=== PATIENT | female | born 1960 | race Caucasian/White ===

== ENCOUNTER 2018-07-06 09:04 | Day surgery (SDC) | payer OTHER ==
[~2018-07-06] VITALS: Ht 157.5 cm; Wt 97.1 kg
[~2018-07-06 09:04] MED LIST: ADAL40KI SC; ALBU1AER4 IN; AMIT PO; ARIP1TAB5 PO; ATOR20TA PO; DOXY100C2 PO; DULO60CA PO; FOLI1TAB6 PO; HYDR-531 PO; HYDR200T36 PO; KEP500T PO; LACO100T PO; LEVO50TA7 PO; LISD70CA PO; LISI-646 PO; MECL-87 PO; MEMA1TAB2 PO; MUPI2CRE TOP; OMEP20TA PO; OXCA600T40 OR; PREG200C19 PO; RIZA10TA24 OR; SIMV-8 PO; SULF500T8 PO; TOPI25CA5 PO
[2018-07-06] MEDS ORDERED: IODIXANOL 320MG/ML 100ML BTL IV ONE (09:54)
[2018-07-06] MEDS ORDERED: LIDOCAINE 2%HCL (LOCAL ANESTH.) INJ 20ML MDV ONE (09:54)
[2018-07-06] MEDS ORDERED: fentaNYL CITRATE 100 MCG/2 ML VL ONE (10:00)
[2018-07-06] MEDS ORDERED: VERAPAMIL 2.5MG/ML INJ 2ML VIAL IV ONE (10:00)
[2018-07-06] MEDS ORDERED: SODIUM CHL 0.9% 0 ML ONE (10:00)
[2018-07-06] MEDS ORDERED: MIDAZOLAM HCL 1MG/1ML-2 ML VIAL ONE (10:00)
[2018-07-06] MEDS ORDERED: ANGIOMAX 250 MG VIAL IV ONE (10:00)
[2018-07-06] MEDS ORDERED: HYDROmorphone HCL 2 MG/ML VL ONE (10:28)
[2018-07-06] MEDS ORDERED: HEPARIN SODIUM (PORCINE) 5000 UNITS/ML 1ML VIAL ONE (10:31)
== END 2018-07-06 12:15 | disposition home or self-care (01) ==
LOC: CATH 09:04
PROVIDERS: ATTEND Internal Medicine
DX: R94.39 Abnormal result of other cardiovascular function study (principal); R06.02 Shortness of breath; I10 Essential (primary) hypertension; E78.00 Pure hypercholesterolemia, unspecified; A49.02 Methicillin resistant Staphylococcus aureus infection, unspecified site; R56.9 Unspecified convulsions; E66.9 Obesity, unspecified; M19.90 Unspecified osteoarthritis, unspecified site; E78.5 Hyperlipidemia, unspecified; J45.909 Unspecified asthma, uncomplicated; Z88.8 Allergy status to other drugs, medicaments and biological substances; Z88.6 Allergy status to analgesic agent; Z86.73 Personal history of transient ischemic attack (TIA), and cerebral infarction without residual deficits; Z68.39 Body mass index [BMI] 39.0-39.9, adult; Z82.49 Family history of ischemic heart disease and other diseases of the circulatory system; Z82.3 Family history of stroke
CPT/HCPCS: 93454; 99152; A6257; C1769; C1894; J1170; J1644; J2250; J3010; J7030; Q9967

== ENCOUNTER 2020-12-09 10:05 | Inpatient (IN) | payer OTHER ==
[2020-12-09] VITALS (16 sets, daily range): BP systolic 62–140; BP diastolic 35–100
[~2020-12-09] VITALS: Ht 157.5 cm; Wt 99.2 kg
[~2020-12-09 10:05] MED LIST changes: -AMIT PO; +AMIT10TA8 PO; -ARIP1TAB5 PO; -LISI-646 PO; +LISI20TA28 PO; -MECL-87 PO; +MECL25TA18 PO; -MEMA1TAB2 PO; +MEMA1TAB5 PO; +METH2.5T PO; -RIZA10TA24 OR; +RIZA10TA50 OR; -SULF500T8 PO
[2020-12-09] MEDS ORDERED: ceFAZolin 1GM/50ML 100 ML IV ONE (10:27)
[2020-12-09] MEDS ORDERED: ACETAMINOPHEN IV 100 ML IV ONE (10:27)
[2020-12-09] MEDS ORDERED: ACETAMINOPHEN IV 1000 MG/100ML (10MG/ML) IV ONE (10:30)
[2020-12-09] MEDS ORDERED: PREGABALIN CAPSULE 75 MG CAP PO ONE (10:30)
[2020-12-09] MEDS ORDERED: fentaNYL CITRATE 100 MCG/2 ML VL ONE (10:53)
[2020-12-09] MEDS ORDERED: MORPHINE SULF(PF) 0.5MG/ML 10ML VIAL ONE (10:53)
[2020-12-09] MEDS ORDERED: MIDAZOLAM HCL 1MG/1ML-2 ML VIAL ONE (10:53)
[2020-12-09] MEDS ORDERED: ONDANSETRON HCL 4 MG/2 ML VIAL ONE (10:54)
[2020-12-09] MEDS ORDERED: GLYCOPYRROLATE 0.2 MG/ML 1ML VIAL ONE (10:54)
[2020-12-09] MEDS ORDERED: PROPOFOL 10 MG/ML 20 ML IV ONE (10:54)
[2020-12-09] MEDS ORDERED: LIDOCAINE 2% (LOCAL ANESTH.) PF 5ml SDV ONE (10:54)
[2020-12-09] MEDS ORDERED: ePHEDrine SULFATE 50 MG/ML AMP ONE ×2 (10:54→14:47)
[2020-12-09] MEDS ORDERED: TRANEXAMIC ACID 20 ML ONE (11:36)
[2020-12-09] MEDS ORDERED: BUPIVACAINE 0.25% INJ 50ML VIAL ONE (11:36)
[2020-12-09] MEDS ORDERED: VANCOMYCIN HCL 1000 MG VL ONE (11:37)
[2020-12-09] MEDS ORDERED: ACETAMINOPHEN 325 MG TAB PO PRN ×2 (14:30→18:00)
[2020-12-09] MEDS ORDERED: Albuterol Sulfate (Proair Respiclick) 108 MCG IN PRN (14:30)
[2020-12-09] MEDS ORDERED: DexAMETHasone SOD PHOS 10MG/1ML VIAL INJ IV PRN (14:30)
[2020-12-09] MEDS ORDERED: NITROGLYCERIN 0.4 MG SL TAB SL PRN (14:30)
[2020-12-09] MEDS: LACTATED RINGER'S 1,000 ML IV SCH (14:30)
[2020-12-09] MEDS ORDERED: OXYCODONE W/ ACETAMINOPHEN 5/325MG TABLET PO PRN (14:30)
[2020-12-09] MEDS ORDERED: MECLIZINE HCL 25 MG TAB PO SCH (14:30)
[2020-12-09] MEDS ORDERED: ONDANSETRON HCL 4 MG/2 ML VIAL IV PRN ×3 (14:30)
[2020-12-09] MEDS ORDERED: HYDROmorphone HCL 2 MG/ML VL IV PRN (14:30)
[2020-12-09] MEDS ORDERED: BISACODYL 5 MG EC TAB PO PRN (14:30)
[2020-12-09] MEDS: ePHEDrine SULFATE 50 MG/ML AMP IV PRN ×6 (14:50→15:40)
[2020-12-09] MEDS ORDERED: ATROPINE SULFATE 0.4 MG/1 ML VIAL ONE (15:17)
[2020-12-09] MEDS ORDERED: PHENYLEPHRINE HCL 10 MG/ML VL IV ONE (15:45)
[2020-12-09] MEDS ORDERED: CALCIUM CHLOR(10%) 100MG/ML 10ML SYRINGE IV ONE (16:50)
[2020-12-09] MEDS ORDERED: NOREPINEPHRINE 8 MG/250ML KIT 250 ML IV ONE (18:55)
[2020-12-09 20:06] LABS: Basophils # (auto) 0 10 ^3/uL (0-0.2); Basophils % (auto) 0.1 % (0.0-2.0); Eosinophils # (auto) 0 10 ^3/uL (0-0.8); Hematocrit 38.5 % (36.0-46.0); Hemoglobin 12.8 g/dL (12.2-16.2); Lymphocytes # (auto) 0.8 10 ^3/uL (0.4-5.4); Mean Corpuscular Hemoglobin 32.6 pg (28.0-32.0); Mean Corpuscular Hgb Conc. 33.3 g/dL (32.0-36.0); Mean Corpuscular Volume 97.9 fL (80.0-100.0); Monocytes # (auto) 0.4 10 ^3/uL (0-1.3); Monocytes % (auto) 3.7 % (0.0-12.0); Neutrophils # (auto) 9.6 10 ^3/uL (1.6-8.6); Neutrophils % (auto) 89.2 % (37.0-80.0); Nucleated Red Blood Cells % 0.1 %; Platelet Count (auto) 221 10^3/uL (140-450); Red Blood Cells 3.94 10^6/uL (4.0-5.20); Red Cell Distribution Width 14.3 % (11.8-14.3); White Blood Cell 10.7 10^3/uL (4.4-10.8)
[2020-12-09] MEDS: HYDROCORTISONE SOD SUCC 100 MG/2ML INJ VIAL IV SCH ×2 (20:20→22:00)
[2020-12-09 20:24] LABS: Calcium 7.7 mg/dL (8.5-10.1); Potassium 3.7 mmol/L (3.5-5.1)
[2020-12-09] MEDS: NOREPINEPHRINE 8 MG/250ML KIT 250 ML IV SCH (20:43)
[2020-12-09] MEDS: DOCUSATE SOD 100 MG CAP PO SCH (21:45)
[2020-12-09] MEDS: LACOSAMIDE 50 MG TAB PO SCH (21:45)
[2020-12-09] MEDS: PREGABALIN 25 MG CAP PO SCH (21:46)
[2020-12-09] MEDS: DULoxetine HCL 30 MG CAP PO SCH (21:46)
[2020-12-09] MEDS: levETIRAcetam 500 MG TAB PO SCH (21:46)
[2020-12-09] MEDS: AMITRIPTYLINE HCL 10 MG TAB PO SCH (21:47)
[2020-12-09] MEDS: SODIUM CHLOR 0.9% PF (SALINE LOCK) 10ML VIAL/SYR IV SCH (21:49)
[2020-12-09] MEDS: ceFAZolin 1GM 2 GM in D5W 5% 100 ML IV SCH (21:50)
[2020-12-09] MEDS ORDERED: LISINOPRIL 20 MG TAB PO SCH (22:00)
[2020-12-09] MEDS ORDERED: ATORVASTATIN 20 MG TAB PO SCH (22:00)
[2020-12-09] MEDS: TOPIRAMATE 25 MG TAB PO SCH (23:51)
[2020-12-10] VITALS (76 sets, daily range): BP systolic 84–167; BP diastolic 37–121
[2020-12-10] MEDS: LACTATED RINGER'S 1,000 ML IV SCH ×3 (01:33→10:37)
[2020-12-10 05:09] LABS: Albumin 3.2 g/dL (3.4-5.0); Anion Gap 9 (5-15); BUN/Creatinine Ratio 16.7; Blood Urea Nitrogen 10 mg/dL (7-18); Calcium 8.1 mg/dL (8.5-10.1); Carbon Dioxide 16 mmol/L (21-32); Chloride 111 mmol/L (98-107); GFR African American 130 mL/min; GFR Non-African American 108 mL/min; Glucose 161 mg/dL (74-106); Potassium 4.7 mmol/L (3.5-5.1); Sodium 136 mmol/L (136-145)
[2020-12-10 05:12] LABS: Alanine Aminotransferase 26 U/L (13-56); Alkaline Phosphatase 157 U/L (45-117); Aspartate Aminotransferase 36 U/L (15-37); Bilirubin, Total 0.3 mg/dL (0.2-1.0); Total Protein 6.3 g/dL (6.4-8.2)
[2020-12-10] MEDS: LEVOTHYROXINE SODIUM 50 MCG TAB PO SCH (06:29)
[2020-12-10] MEDS: HYDROCORTISONE SOD SUCC 100 MG/2ML INJ VIAL IV SCH (06:29)
[2020-12-10] MEDS: ceFAZolin 1GM 2 GM in D5W 5% 100 ML IV SCH ×2 (06:30→14:21)
[2020-12-10] MEDS: SODIUM CHLOR 0.9% PF (SALINE LOCK) 10ML VIAL/SYR IV SCH ×3 (06:30→22:00)
[2020-12-10] MEDS: LISDEXAMFETAMINE DIMESYLATE 70 MG PO SCH (06:30)
[2020-12-10] MEDS: MORPHINE SULF INJ 2 MG/ML SYRINGE 1ML IV PRN ×3 (07:17→20:57)
[2020-12-10] MEDS: PREGABALIN 25 MG CAP PO SCH ×3 (07:18→21:06)
[2020-12-10 07:27] LABS: Basophils # (auto) 0 10 ^3/uL (0-0.2); Basophils % (auto) 0.1 % (0.0-2.0); Eosinophils # (auto) 0 10 ^3/uL (0-0.8); Eosinophils % (auto) 0.1 % (0.0-7.0); Hematocrit 37.6 % (36.0-46.0); Hemoglobin 12.3 g/dL (12.2-16.2); Lymphocytes # (auto) 0.8 10 ^3/uL (0.4-5.4); Lymphocytes % (auto) 7.9 % (10.0-50.0); Mean Corpuscular Hemoglobin 32.2 pg (28.0-32.0); Mean Corpuscular Hgb Conc. 32.6 g/dL (32.0-36.0); Mean Corpuscular Volume 98.6 fL (80.0-100.0); Monocytes # (auto) 0.9 10 ^3/uL (0-1.3); Monocytes % (auto) 8.8 % (0.0-12.0); Neutrophils # (auto) 8.1 10 ^3/uL (1.6-8.6); Neutrophils % (auto) 83.1 % (37.0-80.0); Nucleated Red Blood Cells % 0.1 %; Platelet Count (auto) 246 10^3/uL (140-450); Red Blood Cells 3.81 10^6/uL (4.0-5.20); Red Cell Distribution Width 14.7 % (11.8-14.3); White Blood Cell 9.8 10^3/uL (4.4-10.8)
[2020-12-10] MEDS ORDERED: Rizatriptan Benzoate 10 MG TAB PO PRN (10:00)
[2020-12-10] MEDS ORDERED: ATORVASTATIN 20 MG TAB PO SCH (10:00)
[2020-12-10] MEDS: FOLIC ACID 1 MG TAB PO SCH (10:34)
[2020-12-10] MEDS: DOCUSATE SOD 100 MG CAP PO SCH ×2 (10:34→21:05)
[2020-12-10] MEDS: DULoxetine HCL 30 MG CAP PO SCH ×2 (10:35→21:03)
[2020-12-10] MEDS: PANTOPRAZOLE 40 MG TAB PO SCH (10:36)
[2020-12-10] MEDS: LACOSAMIDE 50 MG TAB PO SCH ×2 (10:36→21:05)
[2020-12-10] MEDS: MEMANTINE HCL 5 MG TAB PO SCH (10:36)
[2020-12-10] MEDS: levETIRAcetam 500 MG TAB PO SCH ×2 (10:36→21:02)
[2020-12-10] MEDS: ENOXAPARIN SOD 40 MG/0.4 ML SYRINGE SC SCH (10:37)
[2020-12-10] MEDS ORDERED: HYDROCORTISONE SOD SUCC 100 MG/2ML INJ VIAL IV ONE (14:15)
[2020-12-10] MEDS: PREGABALIN CAPSULE 75 MG CAP PO SCH ×2 (14:52→21:02)
[2020-12-10] MEDS: TOPIRAMATE 25 MG TAB PO SCH ×2 (14:53→21:03)
[2020-12-10] MEDS: OXYCODONE W/ ACETAMINOPHEN 5/325MG TABLET PO PRN (16:30)
[2020-12-10] MEDS: NOREPINEPHRINE 8 MG/250ML KIT 250 ML IV SCH (18:46)
[2020-12-10] MEDS: ATORVASTATIN 20 MG TAB PO SCH (21:05)
[2020-12-10] MEDS: AMITRIPTYLINE HCL 10 MG TAB PO SCH (21:07)
[2020-12-10] MEDS: DOXYCYCLINE 100 MG TAB/CAP PO SCH (22:00)
[2020-12-11] VITALS (12 sets, daily range): BP systolic 129–151; BP diastolic 49–84
[2020-12-11] MEDS: MORPHINE SULF INJ 2 MG/ML SYRINGE 1ML IV PRN (02:49)
[2020-12-11 04:37] LABS: Hematocrit 30.4 % (36.0-46.0)
[2020-12-11] MEDS: PREGABALIN CAPSULE 75 MG CAP PO SCH ×3 (06:26→22:00)
[2020-12-11] MEDS: PREGABALIN 25 MG CAP PO SCH ×3 (06:26→21:55)
[2020-12-11] MEDS: SODIUM CHLOR 0.9% PF (SALINE LOCK) 10ML VIAL/SYR IV SCH ×3 (06:26→21:57)
[2020-12-11] MEDS: LEVOTHYROXINE SODIUM 50 MCG TAB PO SCH (06:27)
[2020-12-11] MEDS: OXYCODONE W/ ACETAMINOPHEN 5/325MG TABLET PO PRN ×3 (06:36→22:04)
[2020-12-11] MEDS: LISDEXAMFETAMINE DIMESYLATE 70 MG PO SCH (07:00)
[2020-12-11] MEDS: DOCUSATE SOD 100 MG CAP PO SCH ×2 (10:22→21:56)
[2020-12-11] MEDS: DOXYCYCLINE 100 MG TAB/CAP PO SCH ×2 (10:22→21:55)
[2020-12-11] MEDS: FOLIC ACID 1 MG TAB PO SCH (10:23)
[2020-12-11] MEDS: levETIRAcetam 500 MG TAB PO SCH ×2 (10:23→21:59)
[2020-12-11] MEDS: LACOSAMIDE 50 MG TAB PO SCH ×2 (10:23→21:54)
[2020-12-11] MEDS: DULoxetine HCL 30 MG CAP PO SCH ×2 (10:23→21:59)
[2020-12-11] MEDS: MEMANTINE HCL 5 MG TAB PO SCH (10:24)
[2020-12-11] MEDS: PANTOPRAZOLE 40 MG TAB PO SCH (10:24)
[2020-12-11] MEDS: ENOXAPARIN SOD 40 MG/0.4 ML SYRINGE SC SCH (10:24)
[2020-12-11] MEDS: TOPIRAMATE 25 MG TAB PO SCH ×2 (10:24→22:00)
[2020-12-11] MEDS: AMITRIPTYLINE HCL 10 MG TAB PO SCH (21:58)
[2020-12-11] MEDS: ATORVASTATIN 20 MG TAB PO SCH (21:58)
[2020-12-12 05:04] VITALS: BP 141/71
[2020-12-12] MEDS: PREGABALIN CAPSULE 75 MG CAP PO SCH ×3 (05:39→21:03)
[2020-12-12] MEDS: SODIUM CHLOR 0.9% PF (SALINE LOCK) 10ML VIAL/SYR IV SCH ×3 (05:39→21:06)
[2020-12-12] MEDS: PREGABALIN 25 MG CAP PO SCH ×3 (05:39→21:02)
[2020-12-12] MEDS: LISDEXAMFETAMINE DIMESYLATE 70 MG PO SCH (05:39)
[2020-12-12] MEDS: LEVOTHYROXINE SODIUM 50 MCG TAB PO SCH (06:09)
[2020-12-12] MEDS: OXYCODONE W/ ACETAMINOPHEN 5/325MG TABLET PO PRN ×3 (06:16→18:42)
[2020-12-12 06:26] LABS: Hematocrit 28.9 % (36.0-46.0); Hemoglobin 9.9 g/dL (12.2-16.2)
[2020-12-12 09:00] VITALS: BP 138/84
[2020-12-12] MEDS: levETIRAcetam 500 MG TAB PO SCH ×2 (09:43→21:02)
[2020-12-12] MEDS: DOXYCYCLINE 100 MG TAB/CAP PO SCH ×2 (09:43→21:04)
[2020-12-12] MEDS: DOCUSATE SOD 100 MG CAP PO SCH ×2 (09:43→21:00)
[2020-12-12] MEDS: PANTOPRAZOLE 40 MG TAB PO SCH (09:43)
[2020-12-12] MEDS: DULoxetine HCL 30 MG CAP PO SCH ×2 (09:44→21:00)
[2020-12-12] MEDS: TOPIRAMATE 25 MG TAB PO SCH ×2 (09:44→21:04)
[2020-12-12] MEDS: FOLIC ACID 1 MG TAB PO SCH (09:44)
[2020-12-12] MEDS: MEMANTINE HCL 5 MG TAB PO SCH (09:44)
[2020-12-12] MEDS: LACOSAMIDE 50 MG TAB PO SCH ×2 (09:45→21:05)
[2020-12-12] MEDS: ENOXAPARIN SOD 40 MG/0.4 ML SYRINGE SC SCH (09:45)
[2020-12-12 13:00] VITALS: BP 133/81
[2020-12-12 15:03] VITALS: BP 133/81
[2020-12-12 16:58] VITALS: BP 159/88
[2020-12-12] MEDS: AMITRIPTYLINE HCL 10 MG TAB PO SCH (21:01)
[2020-12-12] MEDS: ATORVASTATIN 20 MG TAB PO SCH (21:02)
== END 2020-12-12 22:46 | DRG 470 ==
LOC: OVERFLOW 10:05 → EDSTATUS 10:15 → ICU WEST 17:50 → TELE-WESTW 12-11 15:50
PROVIDERS: ADMIT Orthopaedic Surgery Adult Reconstructive Orthopaedic Surgery; ATTEND Orthopaedic Surgery Adult Reconstructive Orthopaedic Surgery
PROC: 0SRD0J9 Replacement of Left Knee Joint with Synthetic Substitute, Cemented, Open Approach (ICD-10-PCS; principal; 2020-12-09 12:00)
DX: M06.9 Rheumatoid arthritis, unspecified (principal); I95.9 Hypotension, unspecified; E78.00 Pure hypercholesterolemia, unspecified; M12.862 Other specific arthropathies, not elsewhere classified, left knee; Z20.822 Contact with and (suspected) exposure to COVID-19; Z96.652 Presence of left artificial knee joint; G40.909 Epilepsy, unspecified, not intractable, without status epilepticus; I11.9 Hypertensive heart disease without heart failure; Z83.3 Family history of diabetes mellitus; Z82.49 Family history of ischemic heart disease and other diseases of the circulatory system; Z88.8 Allergy status to other drugs, medicaments and biological substances
CPT/HCPCS: 36415; 71045; 73562; 80048; 80053; 84484; 85014; 85018; 85025; 86850; 86900; 86901; 87040; 87081; 87426; 93306; 97110; 97530; C1713; C1776; G0378; J0131; J0461; J0690; J2001; J2250; J2405; J2704; J3490; J7060

== ENCOUNTER 2023-11-22 09:05 | Day surgery (SDC) | payer OTHER ==
[2023-11-22] VITALS (10 sets, daily range): BP systolic 104–177; BP diastolic 61–100; PULSE 67–86; RESP 14–22; TEMP 97; O2SAT 95–100
[~2023-11-22] VITALS: Ht 157.5 cm; Wt 90.3 kg
[~2023-11-22 09:05] MED LIST changes: -ALBU1AER4 IN; +ALBUAER3 IN; +AMIT-400 PO; -AMIT10TA8 PO; -ATOR20TA PO; +DICL1GEL59 EX; -DOXY100C2 PO; +DOXY100C4 PO; -DULO60CA PO; +DULO60CA41 PO; +FOLI-119 PO; -FOLI1TAB6 PO; -LISI20TA28 PO; +LISI20TA56 PO; +MECL-90 PO; -MECL25TA18 PO; -METH2.5T PO; -SIMV-8 PO; +SIMV20TA20 PO; +TRAM50TA2 PO
[2023-11-22] MEDS ORDERED: LIDOCAINE 2%HCL (LOCAL ANESTH.) INJ 20ML MDV ONE (09:46)
[2023-11-22] MEDS ORDERED: IODIXANOL 320MG/ML 100ML BTL IV ONE (09:46)
[2023-11-22] MEDS ORDERED: fentaNYL CITRATE 100 MCG/2 ML VL ONE (09:51)
[2023-11-22] MEDS ORDERED: HEPARIN SODIUM (PORCINE) 5000 UNITS/ML 1ML VIAL ONE (09:51)
[2023-11-22] MEDS ORDERED: ANGIOMAX 250 MG VIAL IV ONE (09:51)
[2023-11-22] MEDS ORDERED: VERAPAMIL 2.5MG/ML INJ 2ML VIAL IV ONE (09:51)
[2023-11-22] MEDS ORDERED: MIDAZOLAM HCL 2MG/2ML 2ml VIAL (1mg/ml) ONE (09:52)
[2023-11-22] MEDS ORDERED: SODIUM CHL 0.9% 0 ML ONE (09:52)
== END 2023-11-22 13:23 | disposition home or self-care (01) ==
LOC: CATH 09:05
PROVIDERS: ATTEND Internal Medicine
DX: R94.39 Abnormal result of other cardiovascular function study (principal); I20.9 Angina pectoris, unspecified; Z88.6 Allergy status to analgesic agent; Z88.8 Allergy status to other drugs, medicaments and biological substances; Z91.018 Allergy to other foods; Z79.899 Other long term (current) drug therapy; Z98.890 Other specified postprocedural states
CPT/HCPCS: 93458; C1725; C1769; C1894; J1644; J2250; J3010; J7030; Q9967; 99152